=== PATIENT | male | born 1985 | race Caucasian/White ===

== ENCOUNTER 2018-01-27 15:49 | Emergency (ER) | payer SELFPAY ==
--- NOTE | 2018-01-27 16:09 | PDOC ---
Rapid Medical Evaluation Time Seen by Provider: 01/27/18 16:06 Medical Evaluation: I have performed a brief in-person evaluation of this patient. The patient presents with a chief complaint of: head pain s/p fall 1 week ago. Patient fell 1 week ago at work and hit his head. He states he's had head pain ever since. Pertinent physical exam findings: none I have ordered the following: nothing The patient will proceed to the ED for further evaluation. Discharge Disposition - Diagnosis Fall, Headache - Referrals - Patient Instructions - Post Discharge Activity
[2018-01-27 16:13] VITALS: BP 108/63; PULSE 73; TEMP 97.3; BMI 20.8
--- NOTE | 2018-01-27 16:36 | PDOC ---
History of Present Illness - General Chief Complaint: Head/Neck problem Stated Complaint: FALL/ HEADACHE Time Seen by Provider: 01/27/18 16:06 History Source: [employer] Used ([id number] ) Exam Limitations: Language Barrier - History of Present Illness Initial Comments: 01/27/18 16:35 pt with c/o headache for one week getting worse. Pt also with neck pain, states started one week ago after carrying heavy box of cermaic tiles. Pt denies fall. Pt states vomiting 3 days ago. took motrin with no relief, headache is constant getting worse. Past History - Past Medical History Allergies/Adverse Reactions: Allergies Allergy/AdvReac Type Severity Reaction Status Date / Time No Known Allergies Allergy Verified 01/27/18 16:10 Home Medications: Ambulatory Orders Naproxen [Naprosyn -] 500 mg PO BID PRN #14 tablet 01/27/18 Ondansetron [Zofran *Odt*] 8 mg SL TID #9 od.tablet MDD 3 tabs 01/27/18 - Suicide/Smoking/Psychosocial Hx Smoking History: Never smoked Hx Alcohol Use: No Drug/Substance Use Hx: No *Physical Exam - Vital Signs Last Vital Signs Temp Pulse Resp BP Pulse Ox 97.3 F L 73 16 108/63 99 01/27/18 16:00 01/27/18 16:00 01/27/18 16:00 01/27/18 16:00 01/27/18 16:00 - Physical Exam General Appearance: Yes: Nourished, Appropriately Dressed HEENT: positive: EOMI, BILL, TMs Normal, Pharynx Normal Neck: positive: Supple, Tender lateral. negative: Tender midline Respiratory/Chest: positive: Lungs Clear, Normal Breath Sounds Cardiovascular: positive: Regular Rhythm, Regular Rate Gastrointestinal/Abdominal: positive: Normal Bowel Sounds, Soft Musculoskeletal: positive: Normal Inspection Extremity: positive: Normal Capillary Refill, Normal Inspection, Normal Range of Motion Integumentary: positive: Normal Color, Dry, Warm Neurologic: positive: Fully Oriented, Alert, Normal Mood/Affect, Normal Response , Motor Strength 5/5 ED Treatment Course - RADIOLOGY Radiology Studies Ordered: Category Date Time Status CERVICAL SPINE CT W/O CONTR [CT] Stat CT Scan 01/27/18 16:[address] WITHOUT CONTRAST [CT] Stat CT Scan 01/27/18 16:34 Ordered Medical Decision Making - Medical Decision Making 01/27/18 17:07 cc: headache neck pain for one week after carrying heavy boxes pt denies any direct head trauma denies fall pt had vomiting 3 days ago will get head and neck cat scan negative cat scans pt stable texting on his cell phone no distress will dc home with follow up inst given 01/27/18 19:10 *DC/Admit/Observation/Transfer Diagnosis at time of Disposition: Headache Qualifiers: Headache type: tension-type Headache chronicity pattern: chronic headache Intractability: not intractable Qualified Code(s): G44.229 - Chronic tension- type headache, not intractable - Discharge Dispostion Disposition: HOME Condition at time of disposition: Good - Prescriptions Prescriptions: Naproxen [Naprosyn -] 500 mg PO BID PRN #14 tablet PRN Reason: Headache Ondansetron [Zofran *Odt*] 8 mg SL TID #9 od.tablet MDD 3 tabs - Referrals Referrals: Hakan Ontiveros MD [Staff Physician] - - Patient Instructions Printed Discharge Instructions: DI for Headache Additional Instructions: drink pleanty of fluids to stay well hydrated follow with the neurologist call tomorrow to make appointment for this week or next week or at the Headache clinic at [facility]: [address] [place] [address] take zofran as needed for any nausea take naprosyn for headache beber abundante cantidad de lquidos para mantenerse barrera hidratado Siga con el neurlogo llame maana para hacer adrian shanel para esta semana o la prxima semana o en la clnica de Headache en [facility]: [address] [place] [address] Telfono: tome zofran segn sea necesario para cualquier nusea mark naprosyn para el dolor de fareed beber muchos lquidos para mantenerse barrera hidratado sigue con el neurlogo Dr. Ontiveros tome naprosyn segn las indicaciones para el dolor de fareed tome zofran segn sea necesario para cualquier nusea - Post Discharge Activity
[2018-01-27] MEDS ORDERED: KETOROLAC TROMETHAMINE 60 MG/2 ML VIAL IM ONE (17:52)
[2018-01-27] MEDS ORDERED: KETOROLAC TROMETHAMINE 60 MG/2 ML VIAL ONE (17:59)
== END 2018-01-27 18:04 | disposition home or self-care (01) ==
LOC: JERFT 15:49
DX: G44.229 Chronic tension-type headache, not intractable (principal); X50.9XXA Other and unspecified overexertion or strenuous movements or postures, initial encounter; Y93.89 Activity, other specified; Y92.89 Other specified places as the place of occurrence of the external cause; Y99.0 Civilian activity done for income or pay
CPT/HCPCS: 70450-TC; 72125-TC; 99281-25

== ENCOUNTER 2024-06-04 03:43 | Emergency (ER) | payer SELFPAY ==
[2024-06-04 03:52] VITALS: BP 114/68; PULSE 84; RESP 18; TEMP 97.8; BMI 20.9
[2024-06-04] MEDS ORDERED: morphine SULFATE 4 MG/ML VIAL ONE ×2 (04:14→05:22)
[2024-06-04] MEDS: ACETAMINOPHEN 1000 MG/100 ML BAG IVPB ONE (04:15)
[2024-06-04] MEDS: morphine CARPU-JECT 4 MG/1 ML DISP.SYRIN IVPUSH ONE ×2 (04:20→05:34)
[2024-06-04 04:37] LABS: BASO % 0.7 % (0-2.0); EOS % 0.1 % (0-4.5); HEMATOCRIT 39.5 % (35.4-49); HEMOGLOBIN 13.1 GM/dL (11.7-16.9); LYMPH % 13.3 % (8-40); MCHC 33.2 g/dl (32.0-35.9); MEAN CELL VOLUME 84.3 fl (80-96); MEAN PLT VOLUME 8.3 fl (7.5-11.1); MONO % 8.5 % (3.8-10.2); NEUT % 77.4 % (42.8-82.8); PLATELET COUNT 337 10^3/uL (134-434); RBC 4.69 M/mm3 (4.00-5.60); RDW 14.3 % (11.9-15.9); WHITE BLOOD COUNT 15.8 K/mm3 (4.0-10.0)
[2024-06-04 05:01] LABS: INR 1.16 (0.83-1.09); PROTHROMBIN TIME (PATIENT) 13.1 SEC (9.7-13.0)
[2024-06-04 05:03] LABS: ACTIVATED PTT 34.7 SECONDS (25.2-36.5)
[2024-06-04 05:07] LABS: POTASSIUM 4.2 mmol/L (3.5-5.1)
[2024-06-04 05:08] LABS: BLOOD UREA NITROGEN 8.8 mg/dL (7-18)
[2024-06-04 05:13] LABS: CREATININE 0.8 mg/dL (0.55-1.3)
[2024-06-04 05:14] LABS: TOT PROT 7.3 g/dl (6.4-8.2)
[2024-06-04] MEDS ORDERED: KETOROLAC TROMETHAMINE 30 MG/1 ML VIAL ONE (05:23)
[2024-06-04] MEDS: KETOROLAC TROMETHAMINE 30 MG/1 ML VIAL IVPUSH ONE (05:34)
[2024-06-04] MEDS: SODIUM CHLORIDE 0.9% 500 ML INFUS.BAG IV ONE (05:38)
[2024-06-04] MEDS ORDERED: LIDOCAINE 4% PATCH TP ONE (05:41)
[2024-06-04] MEDS: LIDOCAINE 5% TOPICAL PATCH TP ONE (05:49)
[2024-06-04 06:29] LABS: PH,URINE 7.5 (5.0-8.0); URINE APPEARANCE CLEAR; URINE BILIRUBIN NEGATIVE (NEGATIVE); URINE COLOR YELLOW; URINE GLUCOSE (UA) NEGATIVE (NEGATIVE); URINE KETONE 1+ (NEGATIVE); URINE LEUK ESTERASE NEGATIVE (NEGATIVE); URINE NITRITE NEGATIVE (NEGATIVE); URINE PROTEIN NEGATIVE (NEGATIVE)
[2024-06-04] MEDS ORDERED: AMOX TR/POT CLAV 875MG/125MG TABLETS (FP) ONE (08:41)
[2024-06-04] MEDS ORDERED: AZITHROMYCIN 500 MG TABLET ONE (08:42)
[2024-06-04] MEDS: AZITHROMYCIN 250 MG TABLET PO ONE (08:50)
[2024-06-04] MEDS: AMOX TR/POT CLAV 875MG/125MG TABLETS (FP) PO ONE (08:50)
[2024-06-04] MEDS ORDERED: LIDOCAINE PATCH REMOVAL MC SCH (22:00)
== END 2024-06-04 08:52 | disposition home or self-care (01) ==
LOC: JER 03:43
PROC: 3E0333Z Introduction of Anti-inflammatory into Peripheral Vein, Percutaneous Approach (ICD-10-PCS; principal; 2024-06-04)
PROC: 3E033NZ Introduction of Analgesics, Hypnotics, Sedatives into Peripheral Vein, Percutaneous Approach (ICD-10-PCS; 2024-06-04)
PROC: 3E033NZ Introduction of Analgesics, Hypnotics, Sedatives into Peripheral Vein, Percutaneous Approach (ICD-10-PCS; 2024-06-04)
DX: M54.50 Low back pain, unspecified (principal); G89.29 Other chronic pain; J18.9 Pneumonia, unspecified organism; R10.9 Unspecified abdominal pain
CPT/HCPCS: 36415; 71045-TC-FY; 80053; 81003; 83605; 83690; 84484; 85025; 85610; 85730; 86850; 86900; 86901; 87086; 93005; 93010; 99285-25